=== PATIENT | female | born 1985 | race American Indian/Alaskan Native ===

== ENCOUNTER 2021-08-30 08:12 | Observation (INO) | payer OTHER ==
[~2021-08-30 08:12] MED LIST: ACETAMINOPHEN 500 MG TAB PO SCH; CELECOXIB 200 MG CAP PO NR; GABAPENTIN 300 MG CAP PO NR; MIDAZOLAM 2 MG/2 ML INJ IV NR; SCOPOLAMINE TRANSDERMAL PATCH 72 HR TD NR; fentaNYL 100 MCG/2 ML INJ IV PRN
[2021-08-30] MEDS: LACTATED RINGERS 1,000 ML IV SCH ×2 (11:50→20:49)
[2021-08-30 11:58] LABS: Hematocrit 23.1 % (30.3-42.9); Hemoglobin 7.4 gm/dl (10.1-14.3); Mean Corpuscular HGB Conc 32 % (30-34); Mean Corpuscular Volume 74 fl (79-97); Platelet Count 704 K/mm3 (140-440); Red Blood Count 3.12 M/mm3 (3.65-5.03)
[2021-08-30] MEDS ORDERED: ACETAMINOPHEN 325 MG/10.15 ML ORAL LIQD UNIT DOSE ONE (11:58)
[2021-08-30] MEDS ORDERED: GABAPENTIN 500 MG/10 ML ORAL LIQD ONE (11:58)
[2021-08-30] MEDS ORDERED: GABAPENTIN 500 MG/10 ML ORAL LIQD PO SCH (12:00)
[2021-08-30 12:01] LABS: Red Cell Distribution Width 23.8 % (13.2-15.2)
[2021-08-30 12:20] LABS: Blood Urea Nitrogen 5 mg/dL (7-17); Calcium 9.1 mg/dL (8.4-10.2); Hemolysis Index 1
[2021-08-30 12:23] LABS: BUN/Creatinine Ratio 8
[2021-08-30] MEDS ORDERED: ACETAMINOPHEN 325 MG/10.15 ML ORAL LIQD UNIT DOSE PO NR (13:00)
[2021-08-30] MEDS ORDERED: ONDANSETRON 4 MG/2 ML INJ IV PRN ×2 (13:11→17:56)
--- NOTE | 2021-08-30 13:13 | Anesthesia Consultation ---
Anesthesia Consult and Med Hx Date of service: 08/30/21 - Airway Anesthetic Teeth Evaluation: Good ROM Head & Neck: Adequate Mental/Hyoid Distance: Adequate Mallampati Class: Class II Intubation Access Assessment: Probably Good - Pre-Operative Health Status ASA Pre-Surgery Classification: ASA2 Proposed Anesthetic Plan: General Nerve Block: TAP - Pulmonary Hx Smoking: Yes (quit 5 yrs ago) Hx Respiratory Symptoms: No Hx Sleep Apnea: No - Cardiovascular System Hx Hypertension: No - Central Nervous System CVA: No - Gastrointestinal Hx Gastroesophageal Reflux Disease: No - Endocrine Hx Renal Disease: No Hx Liver Disease: No Hx Insulin Dependent Diabetes: No Hx Non-Insulin Dependent Diabetes: No Hx Thyroid Disease: No - Hematic Hx Anemia: Yes - Other Systems Hx Obesity: Yes (BMI 31) - Additional Comments Anesthesia Medical History Comments: No hx anesthetic complications.
--- NOTE | 2021-08-30 13:13 | Anesthesia Day of Surgery ---
Anesthesia Day of Surgery - Day of Surgery Patient Examined: Yes Patient H&P Reviewed: Yes Patient is NPO: Yes
[2021-08-30] MEDS ORDERED: dexAMETHasone 4 MG/ML VIAL ONE (13:17)
[2021-08-30] MEDS ORDERED: BUPIVACAINE/PF (0.25%) 2.5 MG/ML 30 ML VIAL INFILTRATI ONE (13:17)
--- NOTE | 2021-08-30 13:20 | History and Physical Report ---
History of Present Illness Date of examination: 08/30/21 Date of admission: 08/30/21 Chief complaint: abdominal masses/swelling, duration unknown. History of present illness: abdominal masses/swelling, duration unknown. masses discovered 08/08/21 during a miscarriage at 21 wks. . Past History Past Medical History: no pertinent history Past Surgical History: [employer]/uterine surgery (salpingectomy of unknown side.), D&C, other (lipoma excision from back. manual placenta removal.) [employer] History: fibroids Social history: lives with family - Obstetrical History : 1 Medications and Allergies Allergies Allergy/AdvReac Type Severity Reaction Status Date / Time No Known Allergies Allergy Unverified 08/28/21 16:37 Home Medications Medication Instructions Recorded Confirmed Last Taken Type No Known Home Medications [No 08/28/21 08/28/21 Unknown History Reported Home Medications] Active Meds: Active Medications Acetaminophen (Acetaminophen 325 Mg/10.15 Ml Oral Liqd Unit Dose) 975 mg PO PREOP NR Stop: 08/30/21 21:00 Celecoxib (Celecoxib 200 Mg Cap) 200 mg PO PREOP NR Stop: 08/30/21 20:00 Fentanyl (Fentanyl 100 Mcg/2 Ml Inj) 100 mcg IV ONCE PRN PRN Reason: sedation for nerve block Stop: 08/30/21 20:00 Gabapentin (Gabapentin 500 Mg/10 Ml Oral Liqd) 300 mg PO PREOP MAHNAZ Stop: 08/30/21 21:00 Hydromorphone HCl (Hydromorphone 1 Mg/1 Ml Inj) 0.5 mg IV Q10MIN PRN PRN Reason: Pain , Severe (7-10) Lactated Ringer's (Lactated Ringers) 1,000 mls @ 100 mls/hr IV DIRECT MAHNAZ Stop: 08/30/21 23:59 Midazolam HCl (Midazolam 2 Mg/2 Ml Inj) 2 mg IV PREOP NR Stop: 08/30/21 20:00 Ondansetron HCl (Ondansetron 4 Mg/2 Ml Inj) 4 mg IV ONCE PRN PRN Reason: Nausea And Vomiting Scopolamine (Scopolamine Transdermal Patch 72 Hr) 1 each TD PREOP NR Stop: 08/30/21 23:00 Review of Systems All systems: negative Gastrointestinal: abdominal pain, early satiety - Physical Exam Breasts: Positive: deferred Cardiovascular: Normal S1, Normal S2 Lungs: Positive: Normal air movement Abdomen: Positive: distention, tenderness Genitourinary (Female): Positive: normal external genitalia, normal perenium. Negative: perineal/vulvar lesions Vulva: both: normal Vagina: Positive: normal moisture. Negative: discharge Uterus: Positive: enlarged, nodular Anus/Rectum: Positive: normal perianal skin Extremities: Positive: normal Deep Tendon Reflex Grade: Normal +2 Results Result Diagrams: 08/30/21 11:50 08/30/21 11:50 Abnormal lab results 08/30/21 08/30/21 Range/Units 11:50 11:50 RBC 3.12 L (3.65-5.03) M/mm3 Hgb 7.4 L (10.1-14.3) gm/dl Hct 23.1 L (30.3-42.9) % MCV 74 L (79-97) fl MCH 24 L (28-32) pg RDW 23.8 H (13.2-15.2) % Plt Count 704 H (140-440) K/mm3 BUN 5 L (7-17) mg/dL All other labs normal. Assessment and Plan - Patient Problems (1) Uterine fibroid Status: Acute (2) Abdominal mass Status: Acute Plan to address problem: for exploratory laparotomy, myomectomy.
[2021-08-30] MEDS ORDERED: ceFAZolin/STERILE WATER 2 GM/20 ML SYRINGE IV NR (14:00)
[2021-08-30] MEDS ORDERED: propofoL 200 MG/20 ML VIAL IV ONE (14:30)
[2021-08-30] MEDS ORDERED: fentaNYL 100 MCG/2 ML INJ ONE (14:30)
[2021-08-30] MEDS ORDERED: KETAMINE/STERILE WATER 50 MG/ML SYRINGE ONE (14:30)
[2021-08-30] MEDS ORDERED: ROCURONIUM 50 MG/5 ML INJ IV ONE (14:30)
[2021-08-30] MEDS ORDERED: LIDOCAINE MPF (2%) 20 MG/1 ML VIAL 5 ML ONE (14:30)
[2021-08-30] MEDS ORDERED: SODIUM CHLORIDE 0.9% 0 ML ONE (14:38)
[2021-08-30] MEDS ORDERED: CITRIC ACID-SOD CITRATE 500 ML IV ONE (15:27)
[2021-08-30] MEDS ORDERED: SODIUM CHLORIDE 0.9% IRR 1,500 ML BOTTLE IR ONE (15:31)
[2021-08-30] MEDS ORDERED: dexAMETHasone 20 MG/5 ML VIAL ONE (16:57)
[2021-08-30] MEDS ORDERED: NEOSTIGMINE 10MG/10 ML INJ MDV ONE (16:57)
[2021-08-30] MEDS ORDERED: GLYCOPYRROLATE 0.4 MG/2 ML INJ ONE (16:57)
[2021-08-30] MEDS ORDERED: ONDANSETRON 4 MG/2 ML INJ ONE (16:57)
[2021-08-30] MEDS ORDERED: LACTATED RINGERS 1,000 ML ONE (16:57)
[2021-08-30] MEDS ORDERED: PHENYLEPHRINE/NS 1,000 MCG/10 ML SYRINGE (OR USE) IV ONE (17:17)
[2021-08-30] MEDS ORDERED: MORPHINE 4 MG/1 ML INJ IV PRN (17:56)
[2021-08-30] MEDS ORDERED: METOCLOPRAMIDE 10 MG/2 ML INJ IV PRN (17:56)
[2021-08-30] MEDS ORDERED: NALOXONE 0.4 MG/1 ML INJ IV PRN (17:56)
[2021-08-30] MEDS ORDERED: HYDROcodone/ACETAMINOPHEN 5-325 MG TAB PO PRN (17:56)
[2021-08-30] MEDS ORDERED: KETOROLAC 30 MG/1 ML INJ IV PRN (17:56)
[2021-08-30] MEDS ORDERED: ACETAMINOPHEN 325 MG TAB PO PRN (17:56)
[2021-08-30] MEDS ORDERED: IBUPROFEN 800 MG TAB PO PRN (17:56)
--- NOTE | 2021-08-30 17:56 | Operative Report ---
Operative Report Operative Report: Date of surgery: August 30, 2021 Preoperative diagnosis: Uterine fibroid, abdominal mass Postoperative diagnosis: The same. Procedure: Exploratory laparotomy, myomectomy. Surgeon: Corina Carson MD Anesthesiologist: Sera Nayak MD Anesthesia: GA EBL: 750 cc. Complications: None Findings: There was an abdomino pelvic mass arising from the uterus and extending all the way to the left upper quadrant. The uterine fundus was mildly adherent to the adjacent greater omentum. There was a stronger adherence of the inferior aspect of the greater omentum to the anterior parietal peritoneum inferior to the umbilicus. The right ovary and fallopian tube were grossly normal. The left ovary was grossly normal. The left fallopian tube was deficient of the fimbrial end. The uterus wasstudded with multiple intramural fibroids the largest of which was 12 inches x 8 inches. The next 1 was larger than a baseball. Within the uterus were 6 more fibroids of varying sizes. There was 1 contained within the vicinity of the right uterine arterial branches measuring about 2 x 2 inches and was left in situ. Procedure in details: The patient was placed in the straight supine position was put to sleep. The vulva and vagina were prepped. An indwelling Mendoza's catheter was. The patient was draped. A timeout was then done. Dr. Nayak gave the go ahead for the case to proceed. A midline incision extending from inferior to the xiphisternum all the way down to the suprapubic aspect was made. The peritoneal cavity was accessed without difficulty. The contents of the abdominal and pelvic cavities were quickly explored. The uterus with 8 huge fibroids were exteriorized. The fibroids were removed through 3 incisions of the seromuscular covering of the uterus over the dome of the bulging fibroids which after incising the respective capsules were removed 1 at a time. The excess seromuscular covering of the largest fibroid was trimmed down to allow for closure of the space. There were 3 incisions into the muscular layer of the uterus one posteriorly, one at the fundus and one to the anterior aspect in the midline each of the scars left on the uterus was at least 6 inches long. There was no evidence of entry into the endometrial cavity, however, the uterine musculature was very thoroughly cut into. Each crater was extirpated with multiple stitches of #1 Vicryl. The serosa was sewn with #1 Vicryl. Hemostasis was excellent. The general peritoneal cavity was explored and no gross abnormalities were seen. The omental adhesion was divided. The liver, the bowels and the greater omentum were all grossly normal. The fascia was closed with looped PDS. The subcutaneous layer was closed with #1 Vicryl. The skin was closed subcuticularly with 4-0 Vicryl. Hemostasis was satisfactory. The estimated blood loss was 750 cc. There were no complications. All sponges and instruments were accounted for. The specimens were packaged for histopathological examination. The patient was safely transferred to the recovery room.
[2021-08-30 18:00] LABS: Hematocrit 23.5 % (30.3-42.9); Hemoglobin 8.4 gm/dl (10.1-14.3)
[2021-08-30] MEDS: HYDROmorphone 1 MG/1 ML INJ IV PRN ×2 (18:10→18:20)
[2021-08-30] MEDS ORDERED: SODIUM CHLORIDE 0.9% 1000 ML 1,000 ML IV SCH (18:15)
[2021-08-30] MEDS: DOCUSATE SODIUM 100 MG CAP PO SCH (21:21)
[2021-08-30] MEDS: MORPHINE 2 MG/1 ML INJ IV PRN (23:20)
[2021-08-31] MEDS: MORPHINE 2 MG/1 ML INJ IV PRN (05:02)
[2021-08-31 05:28] LABS: Hematocrit 23.8 % (30.3-42.9); Hemoglobin 8.3 gm/dl (10.1-14.3)
[2021-08-31] MEDS: DOCUSATE SODIUM 100 MG CAP PO SCH (08:19)
--- NOTE | 2021-08-31 09:28 | Discharge Summary ---
Providers - Providers Date of Admission: 08/30/21 17:57 Date of discharge: 08/31/21 Attending physician: HERBIE MURO MD Primary care physician: TUNG RDZ MD Hospitalization Reason for admission: other (23 hour obs, post operative state.) Procedure: other (Exploratory laparotomy, myomectomy) Episiotomy: none Incision: normal, dry, intact Condition at discharge: Good Disposition: 01 HOME / SELF CARE / HOMELESS - Discharge Diagnoses (1) Uterine fibroid Status: Resolved (2) Abdominal mass Status: Resolved (3) Post-operative state Status: Acute Plan - Discharge Medications Prescriptions: HYDROcodone/APAP 5-325 [[place] 5/325] 2 each PO Q6HR PRN #30 tablet PRN Reason: Pain - Provider Discharge Summary Activity: routine, no sex for 6 weeks Diet: routine Instructions: routine Additional instructions: [] Smoking cessation referral if applicable(refer to patient education folder for contact #) [] Refer to [facility] Booklet Call your doctor immediately for: * Fever > 100.5 * Heavy vaginal bleeding ( >1 pad per hour) * Severe persistent headache * Shortness of breath * Reddened, hot, painful area to leg or breast * Drainage or odor from incision. * Keep incision clean and dry at all times and follow doctor's instructions regarding bathing/showering - Follow up plan Follow up: HERBIE MURO MD [Staff Physician] - 7 Days
[2021-08-31 14:12] VITALS: BP 110/78
== END 2021-08-31 11:00 | disposition home or self-care (01) ==
LOC: EDSTATUS 13:00 → OB 17:57
PROVIDERS: ADMIT Obstetrics & Gynecology; ATTEND Obstetrics & Gynecology
DX: D25.9 Leiomyoma of uterus, unspecified (principal); Z20.822 Contact with and (suspected) exposure to COVID-19; R19.00 Intra-abdominal and pelvic swelling, mass and lump, unspecified site; Z79.899 Other long term (current) drug therapy; Z98.890 Other specified postprocedural states
CPT/HCPCS: 36415; 58146; 64488; 80048; 84703; 85014; 85018; 85025; 86850; 86900; 86901; 86920; 88305; 96374; 96376; G0378; G0379; J0690; J1100; J1170; J1815; J2250; J2270; J2370; J2405; J2704; J2710; J3010; J3490; J7120; P9016; U0003; 64450